=== PATIENT | female | born 1950 | race Caucasian/White ===

== ENCOUNTER 2019-01-10 06:43 | Day surgery (SDC) ==
--- NOTE | 2019-01-04 10:31 | EKG Report ---
Test Performed on : 01/04/2019 10:25:01 AM Test Reason : PAT Blood Pressure : / mmHG Vent. Rate : 062 BPM Atrial Rate : 062 BPM P-R Int : 146 ms QRS Dur : 080 ms QT Int : 398 ms P-R-T Axes : 053 048 053 degrees QTc Int : 403 ms Normal sinus rhythm. Normal ECG No previous ECGs available Unconfirmed Result
[2019-01-04 10:38] LABS: BASO# 0.02 X1000 (0.0-0.2); BASO% 0.2 % (0.0-0.8); EOS# 0.12 X1000 (0.0-0.7); EOS% 1.3 % (0.0-10.0); HEMATOCRIT 41.7 % (37.0-47.0); HEMOGLOBIN 13.6 g/dL (12.0-16.0); IMM GRAN# 0.05 X1000 (0.0-0.04); IMM GRAN% 0.5 % (0.0-0.5); LYMPH# 2.48 X1000 (1.2-3.4); LYMPH% 26.6 % (20.5-51.1); MCH 29.8 PG (27-31); MCHC 32.6 g/dL (33-37); MCV 91.4 FL (81-99); MONO# 0.72 X1000 (0.11-0.59); MONO% 7.7 % (1.7-9.3); MPV 10.3 FL (7.4-10.4); NEUT# 5.95 X1000 (1.4-6.5); NEUT% 63.7 % (42.2-75.2); PLT 294 X1000 (130-400); RBC 4.56 XMIL (4.2-5.4); RDW 13.5 % (11.5-14.5); WBC 9.34 X1000 (4.8-10.8)
[2019-01-04 11:35] LABS: AGAP 7; BUN 12 mg/dL (8-22); CALCIUM 9.7 mg/dL (8.8-10.2); CHLORIDE 98 mmol/L (98-107); COSMO 274; CREATININE 0.7 mg/dL (0.5-0.9); ESTIMATED GFR > 60; GLUCOSE 100 mg/dL (70-104); POTASSIUM 4.2 mmol/L (3.5-5.1); SODIUM 137 mmol/L (136-145); TCO2 32 mmol/L (25-35)
--- NOTE | 2019-01-09 14:53 | HISTORY AND PHYSICAL ---
HISTORY: The patient is a 68-year-old female who was initially evaluated in November of this year upon referral by DR. Herrera Mcnamara because of an advanced stage prolapse. She is struggling with constipation, and is having positional and urgency incontinence as well. Her prolapse was causing pain, and upon initial evaluation, she was found to have stage III prolapse. She subsequently has been evaluated in our office, and fitted with a pessary. However, she was not able to retain the pessary. On examination today, when she coughs hard, point C is +5. Because of this, she is wishing to proceed with surgical intervention. The risks and benefits of surgery were explained at length to the patient and her , who was present, and she is wishing to proceed. PAST MEDICAL HISTORY: Positive for hypercholesterolemia, hypertension, COPD, irregular heart rate, Stevens's esophagitis, and her pelvic organ prolapse. PAST SURGICAL HISTORY: Positive for right rotator cuff, right renal artery stenosis with stent placement, abdominal hysterectomy, and bilateral salpingo-oophorectomy. She is noted to be a para 5-0-1-5 with 1 delivery. ALLERGIES: Lortab, ampicillin, Talwin, and doxycycline. CURRENT MEDICATIONS: Estradiol 2 mg, pantoprazole 40, pravastatin 40, spironolactone 25, tizanidine 4, metoprolol 25. FAMILY HISTORY: Positive for breast cancer in a maternal aunt, and ovarian cancer development in the postmenopausal years of her sister. SOCIAL HISTORY: Positive for tobacco, 1 pack per day for greater than 50 years. PHYSICAL EXAMINATION: VITAL SIGNS: BMI is 29. HEENT: Normocephalic, atraumatic. PERRL. EOMI. No thyromegaly. CARDIOVASCULAR: Regular rate and rhythm without murmur, gallop, or rub. PULMONARY: Clear. ABDOMEN: Soft. GENITOURINARY: Significant prolapse with failed pessary management because of expulsion. NEUROLOGIC: Afocal. EXTREMITIES: Without clubbing, cyanosis, or edema. ASSESSMENT AND PLAN: The patient is admitted at this time for definitive surgical intervention. She is admitted for sacrocolpopexy and midurethral sling with Obtryx. The risks and benefits were discussed at length. She understands and is wishing to proceed. cc: Marcel Duncan MD
[2019-01-10] MEDS ORDERED: CLINDAMYCIN 900 MG/D5W 900 MG/50 ML IVPB ONE (07:13)
[2019-01-10] MEDS ORDERED: PEPCID ONE (07:13)
[2019-01-10] MEDS ORDERED: REGLAN ONE (07:13)
[2019-01-10] MEDS ORDERED: GENTAMICIN 80 MG/NS 80 MG/50 ML IVPB ONE (07:14)
[2019-01-10] MEDS ORDERED: DIPRIVAN 1% ONE (07:32)
[2019-01-10] MEDS ORDERED: FENTANYL ONE (07:32)
[2019-01-10] MEDS ORDERED: QUELICIN (DOSE) ONE (07:39)
[2019-01-10] MEDS ORDERED: NORCURON ONE (07:39)
[2019-01-10] MEDS ORDERED: XYLOCAINE-MPF 2% ONE (07:39)
[2019-01-10] MEDS ORDERED: SODIUM CHLORIDE 0.9% 10 ML ONE (07:39)
[2019-01-10] MEDS ORDERED: MARCAINE 0.5% ONE (09:03)
[2019-01-10] MEDS ORDERED: LR 0 ML ONE (09:04)
[2019-01-10] MEDS ORDERED: D10W 1,000 ML ONE (09:04)
[2019-01-10] MEDS ORDERED: ROBINUL ONE (09:09)
[2019-01-10] MEDS ORDERED: NEOSTIGMINE ONE (09:09)
--- NOTE | 2019-01-10 09:44 | H&P REVIEW ---
H&P Update H&P Review: H&P was reviewed and patient was examined, No change has occurred in the patient's condition
[2019-01-10] MEDS ORDERED: VENTOLIN HFA ONE (10:05)
[2019-01-10] MEDS ORDERED: DECADRON ONE (10:41)
[2019-01-10] MEDS ORDERED: ZOFRAN ONE (10:41)
[2019-01-10 10:59] LABS: URINE SOURCE CATH
[2019-01-10 11:03] LABS: BILIRUBIN URINE NEGATIVE (NEGATIVE); BLOOD URINE NEGATIVE (NEGATIVE); COLOR STRAW; GLUCOSE URINE NEGATIVE (NEGATIVE); KETONE URINE NEGATIVE (NEGATIVE); LEUKOCYTES URINE NEGATIVE (NEGATIVE); NITRITE URINE NEGATIVE (NEGATIVE); PROTEIN URINE NEGATIVE (NEGATIVE); SP GRAVITY URINE 1.007; TURBIDITY URINE CLEAR (CLEAR); UROBILINOGEN URINE NORMAL (NORMAL)
[2019-01-10 11:05] LABS: UR EPITHELIAL CELLS <10 /HPF (<10); URINE BACTERIA NEGATIVE /HPF; URINE RBC <10 /HPF (<10); URINE WBC <10 /HPF (<10)
[2019-01-10] MEDS ORDERED: LASIX ONE (12:12)
[2019-01-10] MEDS ORDERED: TORADOL ONE (12:12)
[2019-01-10] MEDS ORDERED: LR 1,000 ML ONE (13:18)
[2019-01-10] MEDS ORDERED: PHENERGAN ONE (13:24)
[2019-01-10] MEDS: DILAUDID ONE ×2 (13:36→13:48)
[2019-01-10] MEDS ORDERED: FLU VACCINE IM ONE (14:28)
[2019-01-10] MEDS ORDERED: PNEUMOVAX 23 IM ONE (14:47)
[2019-01-10] MEDS ORDERED: ULTRACET 37.5MG/325MG PO PRN (14:49)
[2019-01-10] MEDS ORDERED: ZOFRAN ODT PO PRN (14:49)
--- NOTE | 2019-01-10 15:01 | OPERATIVE NOTE ---
PROCEDURE DATE: 01/10/2019 PREOPERATIVE DIAGNOSIS: POP-Q stage 4 pelvic organ prolapse. POSTOPERATIVE DIAGNOSIS: PROCEDURE: 1. Da Marian abdominal sacrocolpopexy. 2. Midurethral sling with Obtryx. 3. Distal posterior compartment defect repair. SURGEON: Marcel Duncan MD ANESTHESIA: General. ESTIMATED BLOOD LOSS: 40 mL. HISTORY: The patient is a 68-year-old female, who was referred to me by a primary care physician because of worsening symptomatic pelvic organ prolapse. We attempted pessary management, but she was not able to retain this and wished to proceed to surgical intervention. She had had a prior abdominal hysterectomy through a midline incision in the [place] area. OPERATIVE FINDINGS: The patient is found have dense anterior abdominal wall adhesions with omental caking all around that area. We spent the first 45 minutes to 1 hour performing adhesiolysis prior to even being able to dock the robot. OPERATIVE PROCEDURE: Patient was taken to the operating room and placed in supine position. After adequate general anesthesia was obtained, she was placed in the [facility] and her abdomen and vagina were prepped and draped in the usual fashion. A supraumbilical incision was made after infiltration of 0.25% Marcaine with epinephrine. A 12 mm port and sheath were introduced into the abdominal cavity. Pelvic contents were visualized. However, there was a large amount of omental adhesions involving the entire lower abdomen in the midline that prevented visualization into the lower quadrants. Because of this, we could visualize into the right lower quadrant. We placed an 8 mm port at this point and began using straight stick adhesiolysis. We did this for approximately 20 minutes and then were able to have enough visualization to place a port over on the left-hand side in the left lower quadrant. We again placed another one of the 8 mm robotic ports in this site. This gave us better visualization and at this time, we then had enough adhesiolysis performed that we could actually bring the robot in, so we proceeded with the placement of our 2 remaining ports in the typical fashion. All ports were placed under direct visualization and after infiltration of local anesthetic. Prior to docking, we placed EEA sizers within the anus and the vagina, and Thakkar catheter was placed. The robot was then docked. We used hot scissors with the PK in Arm 2 and a Cardiere grasper in Arm 3 and spent the next 10 minutes performing adhesiolysis to be able to visualize the pelvis. There was no bowel pulled up into the anterior abdominal wall adhesions and so most of it was just the thickness of the dense omental caking. After completion of this, we then could visualize the pelvis, and we used the EEA sizer to elevate the bladder. The bladder was noted to be very redundant, and it was difficult to stay in midline because of the redundancy of her extremely large bladder. We started with our vesicovaginal dissection slightly on the rectovaginal side of the apex and were able to dissect approximately 8-10 cm down anteriorly with good lateral dissection as well with minimal blood loss. We were able to remain in the avascular plane. The rectovaginal space also developed quite nicely with no difficulty and essentially no blood loss in the rectovaginal space as well. Our difficulty was actually at the sacral promontory. She had a redundant colon which impeded visualization. Using the third arm as well as our assistance port, we were able to deviate the descending colon laterally to have visualization of the sacral promontory at the bifurcation. We initially lifted the peritoneum off this area and opened this sharply and dissected down to the anterior longitudinal ligament. We actually did cauterize the middle sacral artery that was there because of concerns for possibly of injuring it with suture placement. We then continued with our tunnel creation all the way down to our prior posterior compartment dissection. Ureter was visualized throughout and we were well away from it. After completion of this, we then trimmed our mesh and had approximately 8-10 cm anteriorly with the same dimensions in the posterior compartment as well. We trimmed the third arm of the mesh and placed the mesh intra-abdominally. Starting in the vesicovaginal space, we used 2.0 Washington-Smith suture and secured the vesicovaginal arm with approximately 14 sutures. All sutures were thrown with an initial surgeon's throw and then 4 half-throws after this. We then turned our attention towards the posterior compartment. We went through the uterosacral ligaments and then stayed in the rectovaginal space with placement of the sutures in the vaginal wall. Again, approximately 12 sutures were placed in the posterior compartment. We brought the third arm up and placed 2 sutures through the third arm into the anterior longitudinal ligament and trimmed off excessive mesh. At this time, we had excellent support. Our blood loss at this time had been approximately 10 mL. We continued with closure by reperitonealizing using a V-Loc suture. This was easily completed with 100% coverage of the mesh. Copious amounts of irrigation were performed. Our pressure was dropped and hemostasis was observed. There were no abnormalities of any bleeding from our prior omental adhesiolysis. All equipment was removed. The robot was undocked. We used a Cedric-Mirza closure system to close the fascia of both the assistance port and the camera port site, closing the fascia in deep peritoneal layers. Nursing Services closed all skin incisions after removal of the remaining robotic ports and deflation of the abdomen. Upon going below vaginally, we had excellent anterior and apical support. We proceeded with placement of the sling. We grasped the urethra proximally and distally with Allis clamps and injected another 8 to 10 mL of the same local anesthetic. We made a sagittal incision and dissected up towards the ischial pubic ramus on each side approximately 10 o'clock and 2 o'clock positions. Based on the bony landmarks of the ischial pubic ramus, a stab incision was initially made on the left-hand side, paying attention to the adductor longus. We introduced the halo device through the obturator canal into the load haul dump operator's finger, which directed the needle out. The mesh was attached to it and it was retracted back through the skin. This was performed on the contralateral side in a similar fashion. Bladder had already been removed and the cystoscope was introduced. Both ureters were identified and found to be effluxing urine. There was no evidence of any mesh or suture material in the bladder and no evidence of any other abnormalities. Cystoscope was removed and a Jes clamp was placed the mid urethral position. The tape was brought up with the Jes clamp. Blue tag was excised. The sheaths were easily removed. There was no tension on the mesh whatsoever and the mid urethral incision was closed with a running 2.0 Vicryl ligature. Upon evaluation of the distal posterior compartment, decision was made to make the genital hiatus smaller to assist with further efficacy of her apical support. We made a lucie-shaped incision after grasping the vaginal tissue in the midline with Allis clamps and then right on the perineal body. We injected this area with 0.25% Marcaine with epinephrine and then made the lucie-shaped incision and dissected out laterally. We then plicated the distal levators using interrupted 0 Vicryl ligature at 3 sites. We did not trim off any vaginal tissue. We then closed the incision in a typical fashion for episiotomy with 2-0 Vicryl ligature. Rectal examination was performed and was found to be within normal limits. Thakkar catheter was placed and vaginal pack was placed. Sponge count, instrument counts, and needle counts were correct x3. Packs and drains were Thakkar and Vag Pack. The patient was taken out of low adjustable stirrups. She was awakened and taken to the recovery room with vital signs stable. cc: Marcel Duncan MD
[2019-01-10 15:34] LABS: URINE SOURCE CLEAN CATCH
[2019-01-10 15:37] LABS: BILIRUBIN URINE NEGATIVE (NEGATIVE); BLOOD URINE NEGATIVE (NEGATIVE); COLOR STRAW; GLUCOSE URINE 150 mg/dL (NEGATIVE); KETONE URINE NEGATIVE (NEGATIVE); LEUKOCYTES URINE NEGATIVE (NEGATIVE); NITRITE URINE NEGATIVE (NEGATIVE); PROTEIN URINE NEGATIVE (NEGATIVE); SP GRAVITY URINE 1.009; TURBIDITY URINE CLEAR (CLEAR); UR EPITHELIAL CELLS <10 /HPF (<10); URINE BACTERIA NEGATIVE /HPF; URINE RBC <10 /HPF (<10); URINE WBC <10 /HPF (<10); UROBILINOGEN URINE NORMAL (NORMAL)
[2019-01-10] MEDS: LR 1,000 ML IV SCH ×2 (16:08→20:53)
[2019-01-10] MEDS: TORADOL IV SCH ×2 (16:19→22:08)
--- NOTE | 2019-01-10 18:55 | PROGRESS NOTE ---
DATE: 01/10/2019 TIME: Approximately 5:10 p.m. SUBJECTIVE: Patient is alert and oriented x3, sitting in her bed. Her is with her. OBJECTIVE: Afebrile. Vital signs are stable. Urine output is adequate and clear. ASSESSMENT AND PLAN: Routine postoperative care. We will discontinue her pack and her Thakkar catheter in the morning and undergo a voiding trial, and if she has a good eating, will be discharged home after completion of the voiding trial. cc: Marcel Duncan MD
[2019-01-10] MEDS: PERIDEX MT SCH (20:53)
[2019-01-10] MEDS ORDERED: ZANAFLEX PO SCH (21:00)
[2019-01-10] MEDS ORDERED: PRAVACHOL PO SCH (21:00)
[2019-01-11] MEDS: TORADOL IV SCH (03:59)
[2019-01-11] MEDS ORDERED: PROTONIX PO SCH (07:00)
[2019-01-11] MEDS: LR 1,000 ML IV SCH ×2 (07:00→07:01)
[2019-01-11 07:29] VITALS: BP 115/50
[2019-01-11] MEDS: ALDACTONE PO SCH ×2 (07:31→08:01)
[2019-01-11] MEDS: PERIDEX MT SCH ×2 (07:31→08:01)
[2019-01-11] MEDS: LOPRESSOR PO SCH ×2 (07:31→08:01)
--- NOTE | 2019-01-12 07:17 | DISCHARGE SUMMARY ---
ADMISSION DATE: 01/10/2019 DISCHARGE DATE: 01/11/2019 PRINCIPAL DIAGNOSIS: Pelvic organ prolapse. PROCEDURE: Da Marian abdominal sacrocolpopexy, mid urethral sling with Obtryx, posterior compartment defect repair. SURGEON: Marcel Duncan MD HISTORY: The patient is a 68-year-old female who was admitted for definitive surgical intervention of her pop Q stage IV prolapse. HOSPITAL COURSE: Patient underwent the above-stated procedure. Blood loss at the time was approximately 40 mL. Her postoperative course has been uncomplicated. She is currently undergoing voiding trial, and will be discharged home with instructions for followup in 3 weeks. DISCHARGE MEDICATIONS: [place] and [place]. She was instructed on a regular diet and decreased activity. cc: Marcel Duncan MD
== END 2019-01-11 09:31 | disposition home or self-care (01) ==
LOC: 4N 06:43 → OR 06:43
PROVIDERS: ATTEND Obstetrics & Gynecology